=== PATIENT | female | born 1975 | race Caucasian/White ===

== ENCOUNTER 2016-06-20 17:25 | Emergency (ER) | payer OTHER ==
[~2016-06-20] VITALS: Ht 154.9 cm; Wt 98.4 kg
[~2016-06-20 17:25] MED LIST: ASPIRIN81 M1 PO; BENTYL10 MG PO; CIPRO500 MG PO; MEXATE2.5 MG; NORVASC5 MG PO; ORETIC25 MG PO; PRILOSEC40 MG PO; REGLAN10 MG PO; ZOFRAN4 M1 PO
[2016-06-20 17:39] VITALS: BP 177/123
--- NOTE | 2016-06-20 22:20 | NUR ---
Note mehrdad in EDM - 06/20/16 at 2329 by JANNETTE 40 Y/O HERE C/O PAIN AND SWOLLEN ON R ANKLE S/P FALL X 2 DAYS AGO. DENIES ANY FEVER OR SOB. ER NOTIFIED.
--- NOTE | 2016-06-20 22:25 | NUR ---
TO ER BED 4
--- NOTE | 2016-06-20 22:25 | NUR ---
40 Y/O HERE C/O PAIN AND SWOLLEN ON R ANKLE S/P FALL X 2 DAYS AGO. DENIES ANY FEVER OR SOB. ER NOTIFIED.
[2016-06-20] MEDS ORDERED: KETOROLAC 60 MG/2 ML VIAL IM ONE (22:55)
[2016-06-20 23:38] VITALS: BP 127/91
== END 2016-06-20 23:38 | disposition home or self-care (01) ==
LOC: MED 17:25
DX: S93.401A Sprain of unspecified ligament of right ankle, initial encounter (principal); I10 Essential (primary) hypertension; Z79.82 Long term (current) use of aspirin; Z88.5 Allergy status to narcotic agent; W18.39XA Other fall on same level, initial encounter; Y93.89 Activity, other specified; Y92.89 Other specified places as the place of occurrence of the external cause; Y99.8 Other external cause status
CPT/HCPCS: 29515; 73610; 73630; 96372; 99284; J1885

== ENCOUNTER 2021-04-22 18:27 | Emergency (ER) | payer OTHER ==
[~2021-04-22] VITALS: Ht 154.9 cm; Wt 107.0 kg
[~2021-04-22 18:27] MED LIST changes: +ASPI-1822 PO; -ASPIRIN81 M1 PO; -BENTYL10 MG PO; -CIPRO500 MG PO; +MEX2.5; -MEXATE2.5 MG; -NORVASC5 MG PO; +OMEP40EC24 PO; -ORETIC25 MG PO; -PRILOSEC40 MG PO; -REGLAN10 MG PO; -ZOFRAN4 M1 PO
[2021-04-22 18:38] VITALS: BP 145/110
--- NOTE | 2021-04-22 18:48 | NUR ---
PT AMBUALTED TO BED 3
--- NOTE | 2021-04-22 18:50 | NUR ---
PT AMBULATED TO RESTROOM GAIT STEADY
[2021-04-22] MEDS ORDERED: NACL 0.9% 1,000 ML IV ONE (19:00)
[2021-04-22] MEDS ORDERED: ONDANSETRON 4 MG/2 ML VIAL IVP ONE (19:00)
--- NOTE | 2021-04-22 19:02 | NUR ---
45 Y FEMALE C/O FEVER, DIZZINESS, CHILLS X TODAY. PT STATED SHE IS NOW STARTING TO EXPERINCE A BROWN AND HAS HAD SOME NAUSEA WELL S/P TAKING CYCLOBENZAPINE, GABAPENTIN X LAST NIGHT. PT STATED CURRENT PAIN IS 8/10 AND THROBBING LIKE PAIN THAT IS NON-RADIATING. PT IS CURRENTLY FLUSHED LOOKING AT THIS TIME. PT TOOK TYLENOL 1000 MG X 2 HOURS AGO TO HELP WITH FEVER. ORAL TEMP 103 , BP 145/110 AT THIS TIME. PMH: HTN NKA
--- NOTE | 2021-04-22 19:07 | NUR ---
DR. MOE BEDSIDE EVALUATING PT
[2021-04-22] MEDS ORDERED: KETOROLAC 30 MG/ML VIAL IVP ONE (19:15)
--- NOTE | 2021-04-22 19:18 | NUR ---
Pt report given to MEETA EVERETT. Transfer of care at this time.
--- NOTE | 2021-04-22 19:19 | NUR ---
ZOFRAN AND TORADOL PULLED AND GIVEN TO MEETA EVERETT TO ADMINISTER TO PT
[2021-04-22] MEDS ORDERED: ONDA8TAB87 PO (19:36)
[2021-04-22] MEDS ORDERED: CIPR500T4 PO (19:36)
[2021-04-22 19:58] VITALS: BP 145/110
--- NOTE | 2021-04-22 19:58 | NUR ---
Patient discharged with v/s stable. Written and verbal after care instructions given and explained. Patient alert, oriented and verbalized understanding of instructions. Ambulatory with steady gait. All questions addressed prior to discharge. ID band removed. Patient advised to follow up with PMD. Rx of ZOSTEPHANIE, & KRISTIRO given. Patient educated on indication of medication including possible reaction and side effects. Opportunity to ask questions provided and answered.
== END 2021-04-22 19:58 | disposition home or self-care (01) ==
LOC: MED 18:27
DX: N39.0 Urinary tract infection, site not specified (principal); R11.0 Nausea; I10 Essential (primary) hypertension; E07.9 Disorder of thyroid, unspecified; Z90.49 Acquired absence of other specified parts of digestive tract; Z98.890 Other specified postprocedural states; Z88.5 Allergy status to narcotic agent; Z79.899 Other long term (current) drug therapy
CPT/HCPCS: 81002; 81025; 96361; 96374; 96375; 99284; J1885; J2405; J7030

== ENCOUNTER 2022-08-29 21:44 | Emergency (ER) | payer OTHER ==
[~2022-08-29] VITALS: Ht 154.9 cm; Wt 98.0 kg
[~2022-08-29 21:44] MED LIST changes: +CIPR500T4 PO; +ONDA8TAB87 PO
[2022-08-29 22:30] VITALS: BP 147/102
--- NOTE | 2022-08-30 00:09 | NUR ---
PT TAKEN TO BED 5
--- NOTE | 2022-08-30 00:59 | NUR ---
Ultrasound at bedside.
--- NOTE | 2022-08-30 00:59 | NUR ---
Ko cronin in [facility] - 08/30/22 at 0059 by FRANCOISE ultrasound at bedside
--- NOTE | 2022-08-30 01:51 | NUR ---
Dr. Bates examining patient.
[2022-08-30] MEDS ORDERED: AMOX1TAB8 PO (02:01)
[2022-08-30] MEDS ORDERED: BACTO TP (02:01)
[2022-08-30 02:15] VITALS: BP 137/96
--- NOTE | 2022-08-30 02:15 | NUR ---
Patient discharged with v/s stable. Written and verbal after care instructions given and explained. Patient alert, oriented and verbalized understanding of instructions. All questions addressed prior to discharge. ID band removed. Patient advised to follow up with PMD. Rx of Amox and Muprirocin sent to preferred pharmacy. Patient educated on indication of medication including possible reaction and side effects. Opportunity to ask questions provided and answered.
== END 2022-08-30 02:15 | disposition home or self-care (01) ==
LOC: MED 21:44
DX: N61.0 Mastitis without abscess (principal); N60.01 Solitary cyst of right breast; I10 Essential (primary) hypertension; Z86.39 Personal history of other endocrine, nutritional and metabolic disease; Z98.890 Other specified postprocedural states; Z79.899 Other long term (current) drug therapy; Z79.2 Long term (current) use of antibiotics; Z79.82 Long term (current) use of aspirin; Z88.5 Allergy status to narcotic agent
CPT/HCPCS: 76641; 99284; Q0092

== ENCOUNTER 2023-08-01 11:33 | Emergency (ER) | payer OTHER ==
[~2023-08-01] VITALS: Ht 154.9 cm; Wt 97.5 kg
[~2023-08-01 11:33] MED LIST changes: +AMOX1TAB8 PO; +BACTO TP
[2023-08-01 11:53] VITALS: BP 132/96; PULSE 83; RESP 16; TEMP 97.9; O2SAT 96
[2023-08-01 12:51] LABS: BASOPHILS # (AUTO) 0.1 K/uL (0.00-0.22); BASOPHILS % (AUTO) 0.5 % (0.0-2.0); EOSINOPHILS # (AUTO) 0.2 K/uL (0-0.4); EOSINOPHILS % (AUTO) 1.8 % (0.0-4.0); HEMATOCRIT 40.3 % (36-48); HEMOGLOBIN 13.8 g/dL (12.0-16.0); LYMPHOCYTES # (AUTO) 3.1 K/uL (2.5-16.5); LYMPHOCYTES % (AUTO) 25.6 % (20.5-51.1); MEAN CORPUSCULAR HEMOGLOBIN 29 pg (27-31); MEAN CORPUSCULAR HGB CONC 34 g/dL (33-37); MEAN CORPUSCULAR VOLUME 85.3 fL (80-94); MONOCYTES # (AUTO) 0.9 K/uL (0.8-1.0); MONOCYTES % (AUTO) 7.4 % (1.7-9.3); NEUTROPHILS # (AUTO) 7.9 K/uL (1.8-7.7); NEUTROPHILS % (AUTO) 64.7 % (42.2-75.2); PLATELET COUNT (AUTO) 246 K/uL (140-450); RED BLOOD CELL COUNT(AUTO) 4.72 MIL/uL (4.20-5.40); RED CELL DISTRIBUTION WIDTH 14.2 % (11.6-13.7); WHITE BLOOD COUNT (AUTO) 12.2 K/uL (4.8-10.8)
[2023-08-01] MEDS: ONDANSETRON 4 MG/2 ML VIAL IVP ONE (12:55)
[2023-08-01] MEDS: KETOROLAC 30 MG/ML VIAL IVP ONE (12:56)
[2023-08-01] MEDS: NACL 0.9% 1,000 ML IV SCH (12:57)
[2023-08-01 13:03] LABS: ANION GAP 10.2 (8-16); CALCIUM 8.8 mg/dL (8.5-10.1); CARBON DIOXIDE 30.3 mmol/L (21-32); CREATININE 0.8 mg/dL (0.6-1.3); POTASSIUM 3.5 mmol/L (3.5-5.1)
[2023-08-01 13:07] LABS: ALBUMIN 3.1 g/dL (3.4-5.0); BILIRUBIN,DIRECT 0.1 mg/dL (0.0-0.3); TOTAL BILIRUBIN 0.4 mg/dL (0.0-1.0); TOTAL PROTEIN, SERUM 7.1 g/dL (6.4-8.2)
[2023-08-01 15:00] LABS: APPEARANCE,URINE CLEAR (CLEAR); BILIRUBIN,URINE NEGATIVE (NEGATIVE); BLOOD, URINE TRACE-I (NEGATIVE); COLOR,URINE YELLOW (YELLOW); LEUKOCYTE ESTERASE ,URINE NEGATIVE (NEGATIVE); NITRITE, URINE NEGATIVE (NEGATIVE); PROTEIN,URINE NEGATIVE (NEGATIVE); UGLUCOSE NEGATIVE (NEGATIVE); UROBILINOGEN,URINE 0.2 EU/dL (0.2 - 1)
[2023-08-01 15:11] LABS: BACTERIA,URINE FEW /HPF (None Seen); RBC,URINE 0-5 /HPF (0-5); SQUAMOUS EPITHELIAL CELL,UR 4-10 (MOD) /LPF (0-3 (FEW))
[2023-08-01] MEDS ORDERED: CIPR500T4 PO (15:26)
[2023-08-01] MEDS ORDERED: ACET-10509 PO (15:26)
[2023-08-01] MEDS ORDERED: ONDA-188 SL (15:26)
[2023-08-01] MEDS ORDERED: METR-435 PO (15:26)
[2023-08-01 16:05] VITALS: BP 132/96; PULSE 83; RESP 16; TEMP 97.9; O2SAT 96
== END 2023-08-01 16:05 | disposition home or self-care (01) ==
LOC: MED 11:33
DX: R10.9 Unspecified abdominal pain (principal); R11.0 Nausea; I10 Essential (primary) hypertension; Z86.39 Personal history of other endocrine, nutritional and metabolic disease; Z90.49 Acquired absence of other specified parts of digestive tract; Z98.890 Other specified postprocedural states; Z79.899 Other long term (current) drug therapy; Z79.82 Long term (current) use of aspirin; Z88.5 Allergy status to narcotic agent
CPT/HCPCS: 36415; 74176; 80048; 80076; 81001; 81025; 83690; 85025; 87086; 96361; 96374; 96375; 99285; J1885; J2405; J7030